=== PATIENT | male | born 1935 | race Caucasian/White ===

== ENCOUNTER 2022-10-12 05:33 | Day surgery (SDC) | payer OTHER, BC ==
[2022-10-11 07:22] VITALS: BMI 30.7
[2022-10-12 13:33] VITALS: TEMP 97.5
[2022-10-12 13:35] VITALS: BP 118/65; PULSE 60; RESP 18
== END 2022-10-12 13:05 | disposition home or self-care (01) ==
LOC: JASU-ENDO 05:33
PROVIDERS: ATTEND Internal Medicine Gastroenterology
PROC: 0DJD8ZZ Inspection of Lower Intestinal Tract, Via Natural or Artificial Opening Endoscopic (ICD-10-PCS; principal; 2022-10-12 11:00)
DX: Z12.11 Encounter for screening for malignant neoplasm of colon (principal); Z86.010 Personal history of colon polyps; I10 Essential (primary) hypertension